=== PATIENT | male | born 1970 | race Caucasian/White ===

== ENCOUNTER 2019-04-27 11:09 | Outpatient (CLI) | payer MEDICAID, SELFPAY ==
--- NOTE | 2019-04-27 11:02 | DI.RAD_ITS ---
EXAM: XR SHOULDER RT COMPLETE 2+V INDICATION: PAIN. COMPARISON: RIGHT SHOULDER COMPLETE from 05/24/2011 TECHNIQUE: 2D digital imaging was performed. FINDINGS: There are mild degenerative changes of the acromioclavicular joint and the glenohumeral joint. The s oft tissues are unremarkable.
== END 2019-04-27 11:29 ==
PROVIDERS: PCP Nurse Practitioner; Visit Provider Student in an Organized Health Care Education/Training Program
DX: M25.511 Pain in right shoulder (principal); M19.011 Primary osteoarthritis, right shoulder
CPT/HCPCS: 73030

== ENCOUNTER 2019-12-16 02:54 | Outpatient (CLI) | payer MEDICAID, SELFPAY ==
[2019-12-16 08:37] LABS: Bilirubin Negative (Negative); Blood Small (Negative); Clarity Clear (Clear); Glucose Negative (Negative); Ketones Negative (Negative); Leukocyte Esterase Negative (Negative); Nitrite Negative (Negative); Specific Gravity 1.025 (1.005-1.025); Urobilinogen 0.2 EU/dL (Up TO 0.2); pH 5.5 (5-8)
[2019-12-16 09:42] LABS: Hemoglobin A1C 5.4 % (<5.7)
[2019-12-16 09:49] LABS: Bacteria Rare HPF (Negative); C & S Indicated? Yes; Casts Negative LPF (Negative); Crystals Negative HPF (Negative); Epithelial Cells Rare HPF (Negative); Mucus Trace (Negative)
[2019-12-16 18:02] LABS: PSA, Screening 0.5 ng/mL (0.0-2.5)
[2019-12-18 16:09] LABS: Tissue Transglutaminase Ab IgA <1.2 U/mL
== END 2019-12-16 03:14 ==
PROVIDERS: Physician Assistant; PCP Nurse Practitioner; Visit Provider Nurse Practitioner
DX: K90.41 Non-celiac gluten sensitivity (principal); Z13.1 Encounter for screening for diabetes mellitus; Z12.5 Encounter for screening for malignant neoplasm of prostate; R82.998 Other abnormal findings in urine
CPT/HCPCS: 36415; 84153; 81003; 81015; 83036; 83516; 87086

== ENCOUNTER 2019-12-24 04:20 | Outpatient (CLI) | payer MEDICAID, SELFPAY ==
[2019-12-25 21:13] LABS: COVID-19 RT-PCR Result NEGATIVE (Negative)
== END 2019-12-24 04:40 ==
PROVIDERS: PCP Nurse Practitioner; Visit Provider Surgery
DX: Z11.59 Encounter for screening for other viral diseases (principal); Z01.818 Encounter for other preprocedural examination
CPT/HCPCS: U0003

== ENCOUNTER 2019-12-27 12:14 | Day surgery (SDC) | payer MEDICAID, SELFPAY ==
--- NOTE | 2019-12-27 06:56 | ENDO_ITS ---
Date of service: 12/27/19 Time of Service: 13:17 Endoscopy Report DATE OF PROCEDURE: 12/27/19 PRE-OP DIAGNOSIS: Epigastric pain POST-OP DIAGNOSIS: other (mild gastritis, reflux esophagitis) PROCEDURE: EGD with biopsies SURGEON: Nereyda Warner ANESTHESIA: other (General/ ASA 2/Osmar Singh, BILLY) ESTIMATED BLOOD LOSS: 3 PATHOLOGY: other (Duodenal bx, antrum bx, GE junction bx) COMPLICATIONS: None DISPOSITION: same day INDICATIONS: Epigastric pain for the last 2 weeks. Not taking anything for it at this time. P\\ EGD under sedation Covid testing Risks, benefits and complications have been reviewed. Complications include but are not limited to bleeding, pain, perforation, sore throat, aspiration, and adverse reaction to the medications. Questions were entertained and answered to their satisfaction and they wished to proceed. No guarantees were given or implied. PROCEDURE START TIME: 13:17 PROCEDURE END TIME: 13:28 FINDINGS: mild gastric inflammation, mild reflux esophagitis PROCEDURE DESCRIPTION: After informed consent was obtained the patient was take to the procedure room and placed in a supine position. Monitors were applied and a time out was done. The patients name, date of , procedure type, allergies to medications and metal in their body was reviewed. A bite block was placed and the patient was sedated. Once sedated and comfortable the gastroscope was advanced through the oropharynx which was grossly normal into the esophagus. The proximal and mid- esophagus were normal. In the distal esophagus there was inflammation and signs of reflux noted. The scope was advanced into the stomach and through the pylorus into the 3rd portion of the duodenum. The duodenum was noted to be normal. Biopsies were done to rule out Celiac. The scope was retracted back into the stomach. There was mild inflammation noted and biopsies were done to rule out H. pylori. There were no ulcers. The scope was retroflexed. The cardia and fundus were noted to be normal. There was no hiatal hernia noted. The scope was retracted back into the esophagus. There was mild esophagitis and biopsies were done of the GE junction to rule out Arteaga's. The Z line was irregular. The GE junction was at 38 cm. The scope was removed and the patient was woken up and taken back to [facility] in stable condition. Follow up: 2 weeks
--- NOTE | 2019-12-27 06:58 | W.PM.DSUDISC ---
Discharge Plan Disposition Patient Disposition: HOME Condition: Good Discharge Details Reason For Visit: egd Attending Provider: Nereyda Warner Primary Care Provider: Susana Courtney Home Meds and New Rx's Prescriptions: New omeprazole 40 mg capsule,delayed release(DR/EC) 40 mg PO DAILY Qty: 30 RF: 0 Continued dicyclomine 10 mg capsule 10 mg PO QID Qty: 10 RF: 0 ibuprofen [Advil] 200 mg tablet 200 mg PO Q6H PRNRF: 0 Discharge Instructions Instructions: Gastritis (DC), Diet for Stomach Ulcers and Gastritis (GEN), Esophagitis (DC) Additional Instructions: Findings: inflammation of the stomach and distal esophagus Follow up: 2 weeks new Medication: Omeprazole 40 mg daily Please call if you develop: fevers >101.5 Nausea or Vomiting Abdominal pain that is not transient DAY SURGERY UNIT POST ENDOSCOPY INSTRUCTIONS 1. Because there will be medication in your system for the next 24 hours, you may feel a little sleepy. Your coordination will be affected. Therefore: a. Do not drive or operate dangerous equipment for 24 hours. b. Do not drink alcohol beverages for 24 hours (not even beer). c. Plan to go home and rest for the day. 2. Generally there are no restrictions on your activity after a day or so has gone by, but you may feel a bit fatigued for a few days. 3 After you arrive home you may have a light meal and return to a normal diet as you can tolerate it without feeling sick to your stomach. 4. After surgery, you may feel pain or discomfort. This should be only transient, but if it persists please contact your doctor. 5. If there are any questions regarding the findings of your procedure, please feel free to contact your doctor. 6. If you are unable to contact your doctor with a problem, contact the hospital at [phone]. 7. Continue all your regular medications unless directed otherwise. I understand the above instructions and have no questions. Signature of Patient or Responsible Adult Escort Date/Time Name of Responsible Adult Escort Signature of Nurse Date/Time Stand Alone Forms: Amol Silva (DSU) Activity:: Activity as Tolerated Diet:: As Tolerated Discharge Orders Discharge Orders: Discharge Order (Routine); Ordered 12/27/19 Ordered By: Nereyda Warner
[2019-12-27 12:24] VITALS: BP 128/83; PULSE 61; RESP 18; TEMP 37; O2SAT 97
[2019-12-27] MEDS: Lactated Ringers 1,000 ML 80 ML IV ×3 (12:52→13:20)
--- NOTE | 2019-12-27 13:20 | STOM_PTH ---
PATIENT: Elmer Radford LOC: [facility] U#:[id number] AGE/SX: 49/M ROOM: RE12/27/[address]: Nereyda Warner MD : 1970 BED: DIS: 12/27/2019 SPEC #: [id number] RECD: 12/27/19 16:59 STATUS: RABIA RE #: [id number] PHILLIP: 12/27/19 13:[address]: Nereyda Warner DEPT: Surgical Specimen RECD BY: Gladys Land ENTERED: 12/27/19 17:00 SP TYPE: STOMACH OTHR DR: Susana Courtney, PhD MEDICATION RECONCILIATION TECHNICIAN Tissues: 1 - BIOPSY BOWEL 2 - STOMACH BIOPSY 3 - ESOPHAGUS BIOPSY Procedures: GROSS AND MICRO LEVEL 4 Comments: [id number]
[2019-12-27 14:04] VITALS: BP 114/83; PULSE 61; RESP 16; TEMP 36.8; O2SAT 99
== END 2019-12-27 14:55 | disposition home or self-care (01) ==
LOC: SUR 12:14
PROVIDERS: PCP Nurse Practitioner; Visit Provider Surgery
PROC: 0DJ68ZZ Inspection of Stomach, Via Natural or Artificial Opening Endoscopic (ICD-10-PCS; CPT 43235; principal; 2019-12-27 13:30)
DX: R10.13 Epigastric pain (principal); K21.00 Gastro-esophageal reflux disease with esophagitis, without bleeding; K29.60 Other gastritis without bleeding
CPT/HCPCS: 43239; 88305; J2001

== ENCOUNTER 2019-12-29 00:52 | Outpatient (CLI) | payer MEDICAID, SELFPAY ==
--- NOTE | 2019-12-29 11:58 | DI.CT_ITS ---
EXAM: CT ABDOMEN PELVIS WO CLINICAL HISTORY: lower left back and LLQ pain, UA with blood TECHNIQUE: COMPARISON: No exams were available for comparison FINDINGS: Noncontrast abdominal pelvic CT was performed. Images obtained through the lung bases are unremarka ble. Liver and spleen appear normal. Note is made of cholelithiasis. No biliary dilatation seen. Pancreas appears intact by noncontrast criteria. Abdominal aorta is of normal diameter. No significant abdominal or pelvic adenopathy. No significan t abdominal wall hernia. Appendix is normal. No evidence of diverticulitis or bowel obstruction. Adrenals appear normal bilaterally. There is no hydronephrosis, renal mass, or nephrolithiasis. The re is a 5 millimeter nonobstructing stone in the distal left ureter just above the ureterovesical maury ction. No right ureteral stone seen. IMPRESSION: 5 millimeter non-obstructing stone in the distal left ureter as described above. No hydronephrosis. Incidental note is made of cholelithiasis. RADIATION DOSE DELIVERED: 851.63mGy.cm Total DLP
== END 2019-12-29 01:12 ==
PROVIDERS: PCP Nurse Practitioner; Visit Provider Surgery
DX: N20.1 Calculus of ureter (principal); K80.20 Calculus of gallbladder without cholecystitis without obstruction
CPT/HCPCS: 74176

== ENCOUNTER 2020-02-29 01:46 | Outpatient (CLI) | payer MEDICAID, SELFPAY ==
--- NOTE | 2020-02-29 08:30 | DI.RAD_ITS ---
EXAM: XR SHOULDER LT COMPLETE 2+V CLINICAL HISTORY: left shoulder pain,M25.512, TECHNIQUE: COMPARISON: CR XR SHOULDER RT COMPLETE 2+V from 04/27/2019 FINDINGS: Five views were obtained. There are mild hypertrophic degenerative changes of the acromioclavicular joint. There is minimal marginal osteophyte formation the glenoid and the humerus. There may be sli ght narrowing of the glenohumeral cartilaginous joint space. No other bony or soft tissue abnormalit y seen. IMPRESSION: Mild degenerative changes of acromioclavicular and glenohumeral joint as described above. RADIATION DOSE DELIVERED: Total DLP Total DLP
== END 2020-02-29 02:06 ==
PROVIDERS: PCP Nurse Practitioner; Visit Provider Nurse Practitioner Family
DX: M19.012 Primary osteoarthritis, left shoulder (principal)
CPT/HCPCS: 73030

== ENCOUNTER 2022-02-25 06:03 | Day surgery (SDC) | payer MEDICAID, SELFPAY ==
--- NOTE | 2022-02-25 06:22 | W.COLOREPORT ---
Date of service: 02/25/22 Time of Service: 07:30 Colonoscopy Report Date of procedure: 02/25/22 Pre-op diagnosis general: Colon Cancer screening Post-op diagnosis procedure note: other (polyps) Procedure: Colonoscopy with polypectomy Surgeon: Nereyda Warner Anesthesia Type: General:No Airway Estimated blood loss (mL): 3 Pathology: other (rectal polyp, ascending polyp and transverse polyp x2) Complications: None Disposition: same day Indications: The patient? is a pleasant? 51-year-old male who is here to discuss his first screening colonoscopy. ? He denies any changes in bowel habits, melena, hematochezia, unintentional weight loss or family history of colon cancer.? The procedure and risks were discussed.? The prep was reviewed in detail.? Risks, benefits and complications have been reviewed. Complications include but are not limited to bleeding, pain, perforation, missed small lesion/polyp, sore throat, aspiration and adverse reaction to the medications. Questions were entertained and answered to their satisfaction and they wished to proceed. No guarantees were given or implied. Prep: Miralax/Dulcolax Procedure Start Time: :30 Procedure End Time: :56 Retraction Time: 19 minutes Findings: 4 small polyps Procedure Description: After informed consent was obtained the patient was taken to the procedure room and placed in a left decubitous position. Monitors were applied and a time out was done. The patients name, date of , procedure, allergies to medications and metal in their body was reviewed. The patient was then sedated. Once sedated and comfortable a rectal exam was done. External exam was normal. Internal exam revealed a normal sphincter tone and no palpable masses. The prostate felt smooth. The scope was then introduced and retro-flexed. No internal hemorrhoids, polyps or masses were identified on retro-flexion. The scope was then advanced to the cecum without difficulty. The ileocecal vlave and appendiceal orifice were identified. The prep was good. The scope was then slowly retracted over 19 minutes back into the rectum. Polyps were removed with cold forceps in the rectum, ascending colon and transverse colon polyp x2. There was no diverticulosis noted. The scope was removed and the patient was woken up and taken back to Same day surgery in stable condition. The patient tolerated the procedure well and there were no immediate complications.
--- NOTE | 2022-02-25 06:22 | W.PM.DSUDISC ---
Date of service: 02/25/22 Time of Service: 08:08 Discharge Plan Disposition Patient Disposition: HOME Condition: Good Discharge Details Reason For Visit: Colonoscopy Attending Provider: Nereyda Warner Primary Care Provider: Amira Gallegos Home Meds and New Rx's Prescriptions: Continued ibuprofen [Advil] 200 mg tablet 200 mg PO Q6H PRN Discontinued bisacodyl [Dulcolax (bisacodyl)] 5 mg tablet,delayed release (DR/EC) 5 mg PO ONCE Qty: 4 0RF Rx Instructions: Take according to provider's instructions for colonoscopy prep. polyethylene glycol 3350 17 gram/dose powder 17 g PO ONCE Qty: 238 0RF Rx Instructions: To be taken as directed by prescriber's office for colonoscopy prep. Discharge Instructions Instructions: Colorectal Polyps (DC) Additional Instructions: Findings: 4 small polyps Follow up: 3-5 years depending on the pathology results You will receive a letter with results in 7-10 days Please call if you develop: fevers >101.5 Nausea or Vomiting Abdominal pain that is not transient Rectal bleeding that is more then a tbsp A hard abdomen and inability to pass gas DAY SURGERY UNIT POST ENDOSCOPY INSTRUCTIONS Instructions for everyone who is given Anesthesia: For your safety, please do the following for the next 24 Hours: a. Do not drive or operate dangerous equipment b. Do not drink alcohol beverages or use any recreational drugs for the first 24 hours or while taking pain medications. The medications in your body may have a reaction that can be dangerous. c. Do not make any important decisions or sign any important papers 1. Generally there are no restrictions on your activity after a day or so has gone by, but you may feel a bit fatigued for a few days. 2. After you arrive home you may have a light meal and return to a normal diet as you can tolerate it without feeling sick to your stomach. 3. After surgery, you may feel pain or discomfort. This should be only transient, but if it persists please contact your doctor. 4. If there are any questions regarding the findings of your procedure, please feel free to contact your doctor. 6. If you are unable to contact your doctor with a problem, contact the hospital at [phone]. 7. Continue all your regular medications unless directed otherwise. I understand the above instructions and have no questions. Signature of Patient or Responsible Adult Escort Date/Time Name of Responsible Adult Escort Signature of Nurse Date/Time Activity:: Activity as Tolerated Equipment/Supplies:: No Equipment Needed Diet:: As Tolerated
[2022-02-25 06:32] VITALS: BP 105/89; PULSE 73; RESP 18; TEMP 36.4; O2SAT 97
[2022-02-25] MEDS: Lactated Ringers 1,000 ML 80 ML IV (06:50)
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
[2022-02-25 07:17] VITALS: BMI 25.2
--- NOTE | 2022-02-25 07:31 | BOWEL_PTH ---
PATIENT: Elmer Radford LOC: [facility] U#:[id number] AGE/SX: 51/M ROOM: RE02/25/[address]: Nereyda Warner MD : 1970 BED: DIS: 02/25/2022 SPEC #: [id number] RECD: 02/25/22 12:41 STATUS: RABIA RE #: [id number] PHILLIP: 02/25/22 07:[address]: Nereyda Warner DEPT: Surgical Specimen RECD BY: Gladys Land ENTERED: 02/25/22 12:44 SP TYPE: Bowel OTHR DR: Amira Gallegos, SPACE OPERATIONS OFFICER Tissues: 1 - BIOPSY BOWEL 2 - BIOPSY BOWEL 3 - BIOPSY BOWEL Procedures: GROSS AND MICRO LEVEL 4 Comments: [id number]
--- NOTE | 2022-02-25 08:01 | W.ANESPOSTOP ---
Postoperative Evaluation Date, Time and Location Date Performed: 02/25/22 Time Performed: 08:07 Patient Location: Day Surgery Unit Vital Signs Most Recent Imported Vital Signs: Most Recent Vital Signs Temp Pulse Resp BP Pulse Ox 36.4 C L 73 18 105/89 97 02/25/22 06:32 02/25/22 06:32 02/25/22 06:32 02/25/22 06:32 02/25/22 06:32 Most Recent Manually Entered Vital Signs: Adult Blood Pressure: 111/84 Heart Rate: 62 Respirations: 12 Oxygen Saturation (%): 96 Temperature (C): 36.3 C Pain Score (0-10 Scale): 0 Pain Score Most Recent Pain Score: Most Recent Pain Score Pain Level 0 02/25/22 06:32 Assessment Mental Status: Awake (Alert & Oriented to Patient Baseline) Airway and Respiratory Function: Patent airway with normal (patient baseline) respiratory exam Cardiovascular Function: Hemodynamically Stable Hydration Status: Adequately Hydrated Nausea & Vomiting: No Nausea or Vomiting Pain: Pt. Denies Any Pain Peripheral Nerve Block: Patient did not receive a nerve block
[2022-02-25 08:04] VITALS: BP 111/84; PULSE 58; RESP 16; TEMP 36.2; O2SAT 98
[2022-02-25 08:07] VITALS: BP 111/84; PULSE 62; RESP 12; TEMPC 36.3; O2SAT 96
[2022-02-25 08:32] VITALS: BP 116/94; PULSE 52; RESP 18; TEMP 36.8; O2SAT 99
== END 2022-02-25 08:53 | disposition home or self-care (01) ==
PROVIDERS: PCP Nurse Practitioner Family; Visit Provider Surgery
PROC: 0DJD8ZZ Inspection of Lower Intestinal Tract, Via Natural or Artificial Opening Endoscopic (ICD-10-PCS; CPT 45378; principal; 2022-02-25 07:30)
DX: Z12.11 Encounter for screening for malignant neoplasm of colon (principal); K62.1 Rectal polyp; K63.5 Polyp of colon
CPT/HCPCS: 45380; 88305; J2704

== ENCOUNTER 2024-01-15 21:51 | Outpatient (REF) | payer SELFPAY ==
[2024-01-15 20:02] LABS: Bilirubin Negative (Negative); Blood Large (Negative); Clarity Sl Cloudy (Clear); Glucose Negative (Negative); Ketones Negative (Negative); Leukocyte Esterase Small (Negative); Nitrite Negative (Negative); Specific Gravity 1.025 (1.005-1.025); Urobilinogen 0.2 mg/dL (Up to 0.2)
[2024-01-15 20:09] LABS: Bacteria Negative HPF (Negative); C & S Indicated? Yes; Crystals Negative HPF (Negative); Epithelial Cells Negative HPF (Negative); Mucus Negative (Negative); Other Cells Rare Renal (Negative); RBC >50 HPF (0-2)
== END 2024-01-15 21:52 | disposition home or self-care (01) ==
LOC: LBN 21:51
PROVIDERS: PCP Nurse Practitioner Family; Visit Provider Nurse Practitioner Family
DX: R30.0 Dysuria (principal); N41.9 Inflammatory disease of prostate, unspecified
CPT/HCPCS: 87077; 81003; 81015; 87086; 87186

== ENCOUNTER 2024-12-13 17:22 | Outpatient (REF) | payer SELFPAY | END 2024-12-13 17:23 | disposition home or self-care (01) | LOC: LBN 17:22 | PROVIDERS: PCP Nurse Practitioner Family; Visit Provider Physician Assistant | DX: J02.9 Acute pharyngitis, unspecified (principal); N39.0 Urinary tract infection, site not specified | CPT/HCPCS: 87070; 87086 ==

== ENCOUNTER 2024-12-14 04:58 | Outpatient (CLI) | payer SELFPAY ==
[2024-12-14 15:14] LABS: HCT 47.5 % (40.0-50.0); HGB 16.3 g/dL (13.5-17.5); MCH 30.1 pg (27.0-33.0); MCHC 34.3 % (32.0-36.0); MCV 88 fL (80-95); MPV 9.5 fL (8.0-11.0); Platelet Count 246 10^3/uL (130-400); RBC 5.41 10^6/uL (4.36-5.78); RDW 11.9 % (11.8-14.1); RDW-SD 38.0 fL; WBC 5.34 10^3/uL (4.4-10.8)
[2024-12-14 17:57] LABS: ALT 37 U/L (16-63); AST 24 U/L (15-37); Albumin 4.0 g/dL (3.4-5.0); Alkaline Phosphatase 80 U/L (46-116); Anion Gap 8.6 mmol/L (3-11); BUN 27 mg/dL (7-18); Bilirubin, Total 0.8 mg/dL (0.2-1.0); CO2 28.4 mmol/L (21.0-32.0); Calcium 9.6 mg/dL (8.5-10.1); Calculated LDL 108 mg/dL (<100); Chloride 105 mmol/L (98-107); Cholesterol 178 mg/dL (<200); Estimated GFR 65.69 (mL/min/1.73m2); Glucose 83 mg/dL (74-106); HDL Cholesterol 49 mg/dL (>or=40); Potassium 4.4 mmol/L (3.5-5.1); Sodium 142 mmol/L (136-145); Total Protein 7.3 g/dL (6.4-8.2); Triglyceride 108 mg/dL (<150)
== END 2024-12-14 04:59 ==
LOC: LBO 12-15 04:59
PROVIDERS: PCP Nurse Practitioner Family; Visit Provider Nurse Practitioner Family
DX: Z00.00 Encounter for general adult medical examination without abnormal findings (principal)
CPT/HCPCS: 36415; 80053; 80061; 85027